=== PATIENT | male | born 1995 | race Caucasian/White ===

== ENCOUNTER 2024-01-22 18:47 | Inpatient (IN) ==
[2024-01-22 19:24] LABS: ABS Basophils 0.1 10^3/uL (0.0-0.1); ABS Eosinophils 0.1 10^3/uL (0.0-0.5); ABS Lymphocytes 2.3 10^3/uL (1.0-4.8); ABS Monocytes 1.1 10^3/uL (0.0-1.1); ABS Neutrophils 7.8 10^3/uL (1.5-7.6); ABS Nucleated RBC 0.02 10^3/ul; Eosinophil % 0.9 %; Hematocrit 49.3 % (38-53); Hemoglobin 16.8 g/dL (13.2-16.3); Lymphocyte % 20.2 %; Mean Corpuscular Volume 97.1 fL (80-97); Mean Platelet Volume 7.1 fL (7.5-11.2); Nucleated Red Blood Cells % 0.1 %/100WBC (0.0-0.8); Platelet Count 381 10^3/uL (150-450); Red Blood Count 5.08 10^6/uL (4.06-5.63); Red Cell Distribution Width 13.3 % (12-17); White Blood Count 11.5 10^3/uL (3.6-10.2)
[2024-01-22] MEDS: Lactated Ringers 1000 ml BAG 1,000 ML IV ONE (19:33)
[2024-01-22] MEDS: LORazepam 2 MG/ML 1 mL Syringe IV SCH (19:33)
[2024-01-22 19:43] LABS: INR 0.95 (0.83-1.13)
[2024-01-22 19:49] LABS: High Sens Troponin Baseline 3 pg/mL (<20)
[2024-01-22 20:15] LABS: ALT 116 U/L (7-52); AST 117 U/L (13-39); Albumin/Globulin Ratio 1.8 (1-3); Alcohol, S < 13 mg/dL (<13); Alkaline Phosphatase 49 U/L (35-149); Blood Urea Nitrogen 7 mg/dL (6-24); Calcium 10.7 mg/dL (8.6-10.3); Chloride 103 mmol/L (101-111); Creatinine, Serum 0.83 mg/dL (0.67-1.17); Globulin 2.8 g/dL (2-4); Glucose 114 mg/dL (70-100); Magnesium 1.5 mg/dL (1.9-2.7); Potassium 3.8 mmol/L (3.5-5.0); Sodium 140 mmol/L (135-145); Total Bilirubin 0.7 mg/dL (0.2-1.0); Total Protein 7.8 g/dL (6.4-8.9); eGFR CKD-EPI 122.3 (>60)
[2024-01-22 20:31] LABS: Anion Gap 22 mmol/L (2-16); CO2 Carbon Dioxide 15 mmol/L (22-32)
[2024-01-22] MEDS: Nicotine PATCH 14 MG/24 HR PATCH TRANSDERM ONE (21:00)
[2024-01-22 21:47] LABS: High Sensitivity Troponin 1 Hr 6 pg/mL (<20)
[2024-01-22] MEDS: Magnesium Sulfate 2 gm BAG 2 GM/50 ML BAG IVPB ONE (21:58)
[2024-01-22] MEDS ORDERED: LORazepam 2 mg VIAL 1 ml IV PUSH SCH (23:45)
[2024-01-23] MEDS: Thiamine 100 MG/ML 2 ml VIAL (200 mg) IM ONE (01:12)
[2024-01-23] MEDS: Thiamine 100 MG/ML 2 ml VIAL 100 MG, Folic Acid IV 1 MG, Multiple Vitamin IV ADULT 10 M... IV ONE (04:12)
[2024-01-23] MEDS: Nicotine GUM 4MG FRUIT FLAVOR PO PRN (04:24)
[2024-01-23 06:03] LABS: ABS Basophils 0.1 10^3/uL (0.0-0.1); ABS Eosinophils 0.2 10^3/uL (0.0-0.5); ABS Lymphocytes 1.5 10^3/uL (1.0-4.8); ABS Monocytes 0.8 10^3/uL (0.0-1.1); ABS Neutrophils 5.4 10^3/uL (1.5-7.6); Hematocrit 40.2 % (38-53); Hemoglobin 13.5 g/dL (13.2-16.3); Lymphocyte % 18.9 %; Mean Corpuscular Hemoglobin 32.9 pg (27-33); Mean Corpuscular Hgb Conc 33.6 g/dL (31-36); Mean Corpuscular Volume 97.8 fL (80-97); Mean Platelet Volume 6.7 fL (7.5-11.2); Platelet Count 248 10^3/uL (150-450); Red Blood Count 4.11 10^6/uL (4.06-5.63); Red Cell Distribution Width 13.4 % (12-17); White Blood Count 7.8 10^3/uL (3.6-10.2)
[2024-01-23 07:01] LABS: Calcium 7.4 mg/dL (8.6-10.3); Creatinine, Serum 0.6 mg/dL (0.67-1.17); Magnesium 1.4 mg/dL (1.9-2.7); Potassium 3.1 mmol/L (3.5-5.0); eGFR CKD-EPI 134.8 (>60)
[2024-01-23] MEDS: Magnesium Sulf 4 GM/100 ML IV 4,000 MG/100 ML BAG IVPB ONE (08:12)
[2024-01-23] MEDS: Nicotine PATCH 21 MG/24 HR PATCH TRANSDERM SCH (08:12)
[2024-01-23] MEDS: Multivitamins/Minerals TAB PO SCH (08:13)
[2024-01-23] MEDS: Potassium Chlor 20 meq TAB.ER PO SCH (08:13)
[2024-01-23] MEDS: LORazepam 2 MG/ML 1 mL Syringe IV ONE (11:01)
[2024-01-24 06:59] LABS: Albumin 4.6 g/dL (3.2-5.2); Albumin/Globulin Ratio 1.9 (1-3); Calcium 9.6 mg/dL (8.6-10.3); Creatinine, Serum 0.77 mg/dL (0.67-1.17); Globulin 2.4 g/dL (2-4); Magnesium 1.9 mg/dL (1.9-2.7); Potassium 4.4 mmol/L (3.5-5.0); Total Bilirubin 0.8 mg/dL (0.2-1.0); eGFR CKD-EPI 125.1 (>60)
[2024-01-25 09:48] VITALS: BP 125/81
== END 2024-01-25 13:00 | disposition home or self-care (01) | DRG 775 ==
LOC: ED 18:47 → SUATTDRO 22:28 → EDHOLD 22:28 → MED 01-24 08:22
PROVIDERS: ADMIT Internal Medicine; ATTEND Internal Medicine